=== PATIENT | female | born 2000 | race Caucasian/White ===

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

== ENCOUNTER 2019-01-16 00:27 | Outpatient (CLI) | payer MEDICAID, SELFPAY ==
--- NOTE | 2019-01-16 07:51 | DI.US_ITS ---
SYMPTOM/DIAGNOSIS: ABNL UTERINE, VAGINAL BLEEDING, N93.9 PELVIC ULTRASOUND: A transabdominal and transvaginal examination was carried out. The uterus measures 6.8 cm. in length, 3.5 cm. in height and 4.4 cm. in width with an endometrial stripe thickness of 6.7 mm. The right ovary measures 2.6 by 1.7 by 1.9 cm. The left ovary measures 2.6 by 1.2 by 1.0 cm. SUMMARY: Normal pelvic ultrasound.
== END 2019-01-16 00:47 ==
PROVIDERS: PCP Specialist/Technologist Athletic Trainer; Visit Provider Nurse Practitioner Women's Health
DX: N93.9 Abnormal uterine and vaginal bleeding, unspecified (principal)
CPT/HCPCS: 76830; 76856

== ENCOUNTER 2019-07-04 12:35 | Emergency (ER) | payer MEDICAID, SELFPAY ==
[2019-07-04 12:39] VITALS: BP 116/71; PULSE 76; RESP 17; TEMP 36.6; O2SAT 97
--- NOTE | 2019-07-04 12:56 | W.ED.GENAD ---
Discharge Plan Disposition Patient Disposition: HOME Condition: Good Discharge Details Chief Complaint: EarProblem Clinical Impression: Acute otitis media Primary Care Provider: Amadou Buitrago ED Provider: Erika Godinez Home Meds and New Rx's Prescriptions: New amoxicillin-pot clavulanate [Augmentin] 875-125 mg tablet 1 tab PO BID Qty: 20 RF: 0 Continued levonorgestrel-ethinyl estrad [[place] 28] 0.15-0.03 mg tablet 1 tab PO DAILY Qty: 84 RF: 6 acetaminophen [Tylenol] 325 MG tablet 325 mg PO PRNRF: 0 ibuprofen [Advil] 200 MG tablet 200 mg PO PRNRF: 0 Discharge Instructions Instructions: Otitis Media (ED) Additional Instructions: Encourage hydration. Tylenol and/or ibuprofen as needed for discomfort. Do not put anything else in your ears. Please take the Augmentin as prescribed. If symptoms improve, please take entire course. Otherwise, please follow-up with primary care next week. If you develop new or worsening symptoms please seek care urgently once again. Referrals: Amadou Buitrago [Primary Care Provider] - Medical Decision Making Patient is a pleasant 18-year-old female presenting today with chief complaint of right ear pain. She reports that she was sick for a few weeks prior to the onset of her ear discomfort. States that largely her other URI symptoms have been resolving although cough has been intermittent. Also endorses a few fevers over the past week but did not objectively measure her temperature. Reports that ear pain began 1 week ago and is progressive and increasing. Reports that hearing on the right side is muffled. Has been trying to clean out the ear with multiple foreign objects. Advised against this. She is currently menstruating. On exam, she is resting comfortably. Vital signs are within normal limits. Right TM is bulging, erythematous with loss of landmarks. No mastoid tenderness. She appears nontoxic. Exam is otherwise without acute abnormality. Plan to place patient on Augmentin for otitis media. Encourage hydration. Advised Tylenol and ibuprofen as needed for discomfort. Was given return precautions. All questions and concerns were addressed she is agreement this plan. I advised that she follow-up with primary care in 1 week for reevaluation. HPI General Mode of arrival: ambulatory. Date/Time Provider Initiated Documentation: 07/04/19 12:36. Limitations to Documentation: no limitations. Information obtained by: patient and RN notes reviewed. History of Present Illness 18 year old F presents to the emergency department with the chief complaint of right ear pain, described as mild, with intensity rated at 2. Quality is described as aching, Patient reports no radiation. Patient started experiencing this week(s) (1, pain progressively worsening) and it has been constant. No relieving factors improve symptom(s), No exacerbating factors reported . Patient notes cough and fever/chills; denies diaphoresis, headaches, loss of appetite, nausea/vomiting, rash and shortness of breath. Patient did receive the following treatments prior to arrival, none Related Data Home Medications Medication Instructions Recorded Confirmed acetaminophen [Tylenol] 325 mg PO PRN 01/26/13 01/11/19 ibuprofen [Advil] 200 mg PO PRN 01/26/13 01/11/19 levonorgestrel 0.15 mg-ethinyl 1 tab PO DAILY #84 tab 01/11/19 07/04/19 estradiol 0.03 mg tablet amoxicillin-pot clavulanate 1 tab PO BID #20 tab 07/04/19 [Augmentin] Previous Rx's Medication Instructions Recorded levonorgestrel 0.15 mg-ethinyl 1 tab PO DAILY #84 tab 01/11/19 estradiol 0.03 mg tablet amoxicillin-pot clavulanate 1 tab PO BID #20 tab 07/04/19 [Augmentin] Allergies Allergy/AdvReac Type Severity Reaction Status Date / Time No Known Allergies Allergy Unverified 07/04/19 12:43 General Stated Complaint: EarProblem JIGNESH: 4 Review of Systems Constitutional Constitutional: Reports as per HPI and Denies headache(s) Eyes Eyes: Reports as per HPI, Denies eye discharge and Denies irritation ENT Ears, Nose, Mouth, and Throat: Reports as per HPI and Denies headache(s) Cardiovascular Cardiovascular: Reports as per HPI, Denies chest pain and Denies dyspnea Respiratory Respiratory: Reports as per HPI and Denies dyspnea Gastrointestinal Gastrointestinal: Reports as per HPI, Denies abdominal pain, Denies change in bowel habits, Denies nausea and Denies vomiting Integumentary/Breasts Skin/Breast: Reports as per HPI and Denies rash Neurologic Neurologic: Reports as per HPI and Denies headache(s) [facility] Medical History Abnormal uterine bleeding (AUB) (Acute) Surgical History H/O lymph node biopsy (Acute) L anterior jugular, benign results Social History Smoking/Tobacco Use Status: Never Alcohol Intake: current Alcohol Intake frequency: a few times a week Drug use: Never Substance use type: does not use current occupation: student Sexually active: Yes What type of physical activity do you participate in: none Do you feel safe at home: Yes Do you feel safe in your relationship?: Yes Female Reproductive History Menstrual Duration of menses: other (irregular) control method: pills History History 0 Para Hx # Term Pregnancies Multiple births Hx # Pregnancies Ectopic pregnancies AB induced Hx Number of Living Children AB spontaneous Exam Const General: cooperative, healthy appearing, comfortable, no acute distress, well developed and well groomed Nutritional Appearance: average body habitus and well nourished Orientation: alert and awake HENWY Head: normal to inspection, normocephalic and atraumatic Ears: hearing grossly normal bilaterally, external ears normal, right TM abnormal (bulging, erythematous, loss of landmarks), TM normal on the left, mastoids normal and no periauricular adenopathy General nose exam: external nose normal and nares normal Face and sinus: normal facial exam, sinuses nontender and face symmetric Mouth: oral mucosae normal, lip normal, tongue normal, oropharynx normal and moist mucous membranes Teeth and gingiva: dentition normal Throat: posterior oropharynx normal, tonsils normal and uvula midline Eyes General: appearance normal, both eyes and all related structures Neck Neck: normal visual inspection, full ROM, no lymphadenopathy and no meningeal signs Resp Effort & Inspection: normal respiratory effort, able to speak in complete sentences and no respiratory distress Auscultation: clear to auscultation bilaterally, no rales, no rhonchi and no wheezes Cardio Rate: regular rate Rhythm: regular rhythm Heart Sounds: S1 normal and S2 normal Skin General skin exam: no rashes or lesions noted Neuro General: alert and awake Cognition: normal cognition Speech: speech normal Gait: normal gait Psych Appearance: grossly normal and well kempt Mental Status: mental status grossly normal Speech and Movement: speech and movement normal Course Vital Signs Vital signs: Vital Signs Temperature 36.6 C 07/04/19 12:39 Pulse 76 07/04/19 12:39 Respiratory Rate 17 07/04/19 12:39 Blood Pressure 116/71 07/04/19 12:39 Pulse Oximetry 97 07/04/19 12:39 Temperature 36.6 C 07/04/19 12:39 Temperature Source Skin 07/04/19 12:39 Pulse 76 07/04/19 12:39 Respiratory Rate 17 07/04/19 12:39 Respiratory Effort Non-Labored 07/04/19 12:42 Blood Pressure 116/71 07/04/19 12:39 Blood Pressure Position Sitting 07/04/19 12:39 Pulse Oximetry 97 07/04/19 12:39 Oxygen Delivery Method Room Air 07/04/19 12:39 Oxygen Flow Rate 0 07/04/19 12:39 Pain Level 2 07/04/19 12:39
[2019-07-04 13:13] VITALS: BP 116/71; PULSE 76; RESP 17; TEMP 36.6; O2SAT 97
== END 2019-07-04 13:14 | disposition home or self-care (01) ==
PROVIDERS: Emergency Provider Physician Assistant; PCP Specialist/Technologist Athletic Trainer
DX: H66.91 Otitis media, unspecified, right ear (principal)
CPT/HCPCS: 99283

== ENCOUNTER 2020-02-06 13:30 | Outpatient (REF) | payer MEDICAID, SELFPAY ==
[2020-02-07 14:11] LABS: Chlamydia Result Negative (Negative); GC Result Negative (Negative)
== END 2020-02-06 13:50 ==
LOC: LBN 13:30
PROVIDERS: PCP Specialist/Technologist Athletic Trainer; Visit Provider Nurse Practitioner Family
DX: Z11.3 Encounter for screening for infections with a predominantly sexual mode of transmission (principal)
CPT/HCPCS: 87491; 87591

== ENCOUNTER 2021-05-24 12:37 | Outpatient (REF) | payer MEDICAID, SELFPAY ==
--- NOTE | 2021-05-24 11:30 | PAPFT_PTH ---
PATIENT: Dylon Guevara LOC: [facility] U#:[id number] AGE/SX: 20/F ROOM: RE05/24/[address]: Delmy Rios NP : 2000 BED: DIS: 05/24/2021 SPEC #: [id number] RECD: 05/24/21 18:04 STATUS: HUGH REPranay #: [id number] KIM: 05/24/21 11:[address]: Gabriel GONZALES,Delmy [facility] RECD BY: Miya Hook ENTERED: 05/24/21 18:08 SP TYPE: PAPFT OTHR DR: Amadou Buitrago Tissues: 1 - CX/ENDOCX FOR PAP SMEARS Procedures: PAP THIN PREP/UVM Screening Comments: [id number] (CHLAMYDIA/GC)
[2021-05-25 16:22] LABS: Chlamydia Result Negative (Negative); GC Result Negative (Negative)
== END 2021-05-24 12:38 | disposition home or self-care (01) ==
LOC: LBN 12:37
PROVIDERS: PCP Specialist/Technologist Athletic Trainer; Visit Provider Nurse Practitioner Women's Health
DX: Z12.4 Encounter for screening for malignant neoplasm of cervix (principal); Z11.3 Encounter for screening for infections with a predominantly sexual mode of transmission
CPT/HCPCS: 87491; 87591; 88142

== ENCOUNTER 2021-06-28 03:00 | Outpatient (CLI) | payer MEDICAID, SELFPAY ==
--- NOTE | 2021-06-28 08:15 | DI.US_ITS ---
Exam(s) US PELVIS TRANSVAGINAL EXAM: US PELVIS TRANSVAGINAL CLINICAL HISTORY: Dyspareunia, IUD in place,Z30.431 TECHNIQUE: Ultrasound of the pelvis was performed both transabdominal and transvaginal. COMPARISON: US US PELVIS TRANSVAGINAL from 01/16/2019 FINDINGS: UTERUS: Measures 0.4 cm length x 2 point cm AP x 3.5 cm wide. There are no uterine fibroids. Endometrial thickness measures 5 mm. There is an IUD in the endometrial canal but the IUD appears to be line somewhat low in the endometri al. CERVIX: There are no obvious nabothian cysts. RIGHT OVARY: Measures 0.5 x 2.3 x 2.3 cm No significant cysts nor masses evident in the right ovary. LEFT OVARY: Measures 0.6 x 1.9 x 2.3 cm Normal appearing follicles. CUL-DE-SAC: Tiny amount of free fluid. IMPRESSION: 1. Both ovaries appear unremarkable with normal appearing follicles bilaterally. 2. There is an IUD in the uterine cavity. This, however, appears to be somewhat low lying within nez perce rine cavity. 3. Tiny amount of fluid in the cul-de-sac DATA REPOSITORY:
== END 2021-06-28 03:20 ==
PROVIDERS: PCP Specialist/Technologist Athletic Trainer; Visit Provider Nurse Practitioner Women's Health
DX: Z30.431 Encounter for routine checking of intrauterine contraceptive device (principal)
CPT/HCPCS: 76830; 76856

== ENCOUNTER 2021-12-15 02:10 | Outpatient (CLI) | payer MEDICAID, SELFPAY ==
[2021-12-15 07:28] LABS: FREE T4 0.78 ng/dL (0.76-1.46); TSH (W/Ref FT4) 4.11 uIU/mL (0.36-3.74)
== END 2021-12-15 02:11 | disposition home or self-care (01) ==
LOC: LBO 02:10
PROVIDERS: PCP Nurse Practitioner Family; Visit Provider Obstetrics & Gynecology
DX: N92.0 Excessive and frequent menstruation with regular cycle (principal); N93.9 Abnormal uterine and vaginal bleeding, unspecified
CPT/HCPCS: 36415; 84439; 84443

== ENCOUNTER 2022-05-25 17:45 | Emergency (ER) | payer MEDICAID, SELFPAY ==
[2022-05-25 17:49] VITALS: BP 146/92; PULSE 82; RESP 18; TEMP 36.6; O2SAT 98
--- NOTE | 2022-05-25 19:49 | W.ED.GENAD ---
Discharge Plan Disposition Patient Disposition: Home Condition: Stable Discharge Details Clinical Impression: URI (upper respiratory infection) Primary Care Provider: Kiki Nation ED Provider: Tyler Martinez Home Meds and New Rx's Prescriptions: New benzonatate 200 mg capsule 200 mg PO TID PRN (Reason: cough) Qty: 30 0RF Continued acetaminophen [Tylenol] 325 MG tablet 325 - 650 mg PO PRN PRN ibuprofen [Advil] 200 MG tablet 200 mg PO PRN Discharge Instructions Instructions: Upper Respiratory Infection (ED) Additional Instructions: Please use the provided inhaler as discussed. You may also use [id number] cough and cold medication. During viral illness it is very important that you stay well-hydrated and get plenty of rest. If you develop any new or significant worsening of symptoms or do not show signs of improvement by next week please follow-up with your primary care provider for reassessment or return to the emergency department as needed. Referrals: Kiki Nation [Primary Care Provider] - 1 week (If not improving by next week please follow-up your primary care provider for reassessment) Discharge Data Discharge Date/Time-TO BE ENTERED AT DEPARTURE: 05/25/22 20:06 Medical Decision Making 2 days of URI, family members with RSV pneumonia, exam is unremarkable, slightly tight lower lung sounds but no concern for pneumonia at this time. I feel that this is more viral etiology. Will give patient an inhaler and Tessalon Perles along with return and follow-up precautions. After discussion of diagnosis and plan of care patient has no further needs, questions, or concerns and states clear understanding to return to the emergency department for any worsening symptoms. This documentation was generated using [employer] Experience[employer] system, please disregard any oddities of phrase or misspellings. Sign Out No HPI General Mode of arrival: ambulatory. Date/Time Provider Initiated Documentation: 05/25/22 18:22. Limitations to Documentation: no limitations. Information obtained by: patient. History of Present Illness 21 year old F presents to the emergency department with the chief complaint of cold symptoms, described as moderate, with intensity rated at 6. Quality is described as aching, Patient started experiencing this day(s) (2) and it has been constant. No relieving factors improve symptom(s), No exacerbating factors reported . Patient notes fever/chills, headaches and malaise. Patient did receive the following treatments prior to arrival, none Related Data Home Medications Medication Instructions Recorded Confirmed acetaminophen 325 mg tablet 325 - 650 mg PO PRN PRN 01/26/13 05/25/22 (Tylenol) ibuprofen 200 mg tablet (Advil) 200 mg PO PRN 01/26/13 03/14/22 benzonatate 200 mg capsule 200 mg PO TID PRN cough #30 caps 05/25/22 Previous Rx's Medication Instructions Recorded benzonatate 200 mg capsule 200 mg PO TID PRN cough #30 caps 05/25/22 Allergies Allergy/AdvReac Type Severity Reaction Status Date / Time No Known Allergies Allergy Verified 05/25/22 17:55 General Stated Complaint: RespSymp JIGNESH: 4 Review of Systems Constitutional Constitutional: Reports body ache(s), Reports chills, Reports fever(s), Reports headache(s), Reports lethargy and Reports malaise Eyes Eyes: Denies eye discharge ENT Ears, Nose, Mouth, and Throat: Reports as per HPI, Denies ear discharge, Denies otalgia, Reports headache(s), Reports nasal congestion, Reports nasal discharge, Denies neck pain, Reports sore throat and Denies throat swelling Cardiovascular Cardiovascular: Denies chest pain and Denies dyspnea Respiratory Respiratory: Reports cough and Denies dyspnea Musculoskeletal Musculoskeletal: Denies joint swelling and Denies neck pain Integumentary/Breasts Skin/Breast: Denies rash Neurologic Neurologic: Reports headache(s) Allergic/Immunologic Allergic/Immunologic: Denies throat swelling PFSH All Active Problems (Updated 05/25/22 @ 19:50 by Tyler Martinez NP) URI (upper respiratory infection) (Acute) Oligomenorrhea (Acute) Obesity (Chronic) Unable to lose weight (Acute) Dyspareunia (Acute) seeing pelvic PT Breast skin changes (Acute) Left lower quadrant pain (Acute) Medical History (Updated 05/25/22 @ 19:50 by Tyler Martinez NP) Abnormal uterine bleeding (AUB) Procreative management Surgical History H/O lymph node biopsy L anterior jugular, benign results Family History Maternal Grandfather Diabetes Heart disease Paternal Aunt Thyroid cancer Social History Smoking/Tobacco Use Status: Current every day Tobacco Type: e-cigarettes Smoking risk assessment performed?: Yes Alcohol Intake: current Alcohol Intake frequency: a few times a week Drug use: Never Substance use type: does not use current occupation: student Sexually active: Yes What type of physical activity do you participate in: none Do you feel safe at home: Yes Do you feel safe in your relationship?: Yes Female Reproductive History Menstrual Duration of menses: other control method: none History History 0 Para Hx # Term Pregnancies Multiple births Hx # Pregnancies Ectopic pregnancies AB induced Hx Number of Living Children AB spontaneous Exam Const General: cooperative, comfortable and no acute distress Orientation: alert and awake HENMT Head: normal to inspection, normocephalic and atraumatic Ears: hearing grossly normal bilaterally and TM's normal bilaterally General nose exam: external nose normal Face and sinus: no erythema Mouth: oral mucosae normal, no drooling, no muffled voice and no trismus Throat: posterior oropharynx normal Neck Neck: normal visual inspection, full ROM, no lymphadenopathy, no meningeal signs, trachea midline and supple Resp Effort & Inspection: normal respiratory effort, able to speak in complete sentences and cough Quality of cough: dry Auscultation: clear to auscultation bilaterally Cardio Rate: regular rate Rhythm: regular rhythm Heart Sounds: S1 normal, S2 normal, normal S1 and S2, no click, no gallops, no murmurs and no rubs Skin General skin exam: no rashes or lesions noted and dry skin (warm) Neuro General: patient alert, patient awake, patient oriented x3, gait normal and moves all extremities Cognition: normal cognition Speech: speech normal Course Vital Signs Vital signs: Vital Signs Temperature 36.6 C 05/25/22 17:49 Pulse 82 05/25/22 17:49 Respiratory Rate 18 05/25/22 17:49 Blood Pressure 146/92 H 05/25/22 17:49 Pulse Oximetry 98 05/25/22 17:49 Temperature 36.6 C 05/25/22 17:49 Temperature Source Oral 05/25/22 17:49 Pulse 82 05/25/22 17:49 Respiratory Rate 18 05/25/22 17:49 Blood Pressure 146/92 H 05/25/22 17:49 Blood Pressure Position Sitting 05/25/22 17:49 Pulse Oximetry 98 05/25/22 17:49 Oxygen Delivery Method Room Air 05/25/22 17:49 Oxygen Flow Rate 0 05/25/22 17:49 Pain Level 2 05/25/22 17:49 Comment 05/25/22 17:49 PAWSS Have you Been Recently Intoxicated or Drunk Within the Last 30 days?: No Have you Ever Experienced Previous Episodes of Alcohol Withdrawal?: No Have you ever Experienced Withdrawal Seizures?: No Have you ever Experienced Delirium Tremens(DT)s?: No Have you ever undergone Alcohol Rehabilitation Treatment (i.e, inpt ot outpatient treatment programs)?: No Have you ever Experienced Blackouts?: No Have you ever Combined Alcohol with other Downers within the last 90 days?: No Have you ever Combined Alcohol with any other Substance of Abuse during the last 90 days?: No Positive Blood Alcohol level on Presentation? [PCS.BAL]: No Evidence of Increased Autonomic Activity (i.e. HR>120, tremor, sweating, agitation, nausea)?: No Result: 0
[2022-05-25] MEDS: Albuterol HFA 8 GM 60 PUFF INH IH (20:03)
[2022-05-25] MEDS: Inhaler, Assist Device 1 EACH MC (20:03)
[2022-05-25] MEDS: Benzonatate 100 MG CAP 300 MG PO (20:03)
== END 2022-05-25 20:06 | disposition home or self-care (01) ==
PROVIDERS: Emergency Provider Nurse Practitioner Family; PCP Nurse Practitioner Family
DX: J06.9 Acute upper respiratory infection, unspecified (principal)
CPT/HCPCS: 99283

== ENCOUNTER 2022-07-25 03:10 | Outpatient (CLI) | payer MEDICAID, SELFPAY ==
--- NOTE | 2022-07-25 13:00 | NS.NUTBLAN_ITS ---
Dylon was referred for weight management. 5'2 228 lbs BMI: 41 Dylon reports she typically weighs about 160 lbs. 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 She gradually gained weight, was dx with PCOS and had very irregular and heavy periods. She had a trial of metformin but could not tolerate. Had a trial of control but could not tolerate. Has tried to lose weight but unable to do so despite cutting out processed foods and being active. 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 She desires . Recent blood work indicates elevated TSH, low level of testosterone Diet Recall: B: scrambled eggs, L: salad or cottage cheese, D: homemade . Sleeps 8-10 hour per night Session today focused on weight loss diet and options. In view of following a well balanced diet with no excess in simple carbs, its unclear if she will lose weight on lower carb diet. Encouraged daily exercise of 45 min or 10,000 steps. PCOS most likely causing insulin resistance, making weight loss difficult. May benefit from ozempic/trucility to aid in weight loss as with PCOS. If diet/exercise do not provide success, recommend Dylon look into weight loss surgery. Follow up planned for 08/30/22 at 3 pm.
== END 2022-07-25 03:11 | disposition home or self-care (01) ==
LOC: DS 03:10
PROVIDERS: PCP Nurse Practitioner Family; Visit Provider Dietitian, Registered
DX: E66.8 Other obesity (principal); Z68.41 Body mass index [BMI] 40.0-44.9, adult; Z71.3 Dietary counseling and surveillance; E28.2 Polycystic ovarian syndrome
CPT/HCPCS: 97802

== ENCOUNTER 2022-08-29 12:12 | Outpatient (CLI) | payer MEDICAID, SELFPAY ==
--- NOTE | 2022-08-29 14:00 | NS.NUTBLAN_ITS ---
Dylon returns for weight management education. 5'2 228 lbs BMI: 41 No change in weight in last 4 weeks despite reaching 34757 steps 5 days a week and following a lower carb diet (<100g carbs) and meeting 100% protein needs. Dylon is frustrated at the lack of weight loss and is interested in pursuing weight loss surgery. She will attend a [facility] Info meeting on 09/02/22. Session today focused on importance of continuation of exercise and well balanced meals. Provided support for weight loss surgery and discussed typical diets pre and post surgery. Suspect, lack of weight loss due to insulin resistance with PCOS. Unable to tolerate metformin. Weight loss surgery will most likely correct insulin metabolism and provide Dylon the weight she desires and ability to conceive. Follow up 09/23/22 at 1 pm.
== END 2022-08-29 12:13 | disposition home or self-care (01) ==
LOC: DS 12:12
PROVIDERS: PCP Nurse Practitioner Family; Visit Provider Dietitian, Registered
DX: E66.8 Other obesity (principal); Z68.41 Body mass index [BMI] 40.0-44.9, adult; Z71.3 Dietary counseling and surveillance
CPT/HCPCS: 97803

== ENCOUNTER 2022-09-23 03:02 | Outpatient (CLI) | payer MEDICAID, SELFPAY ==
--- NOTE | 2022-09-23 13:00 | NS.NUTBLAN_ITS ---
Dylon returns for weight management education. 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 She is interested in pursueing weight loss surgery as she has tried many times with no success to lose weight with diet and exercise. [facility] is in agreement. Session today focused on providing Dylon support for following healthful diet and staying active. No follow up planned at this time but will be available going forward.
== END 2022-09-23 03:03 | disposition home or self-care (01) ==
PROVIDERS: PCP Nurse Practitioner Family; Visit Provider Dietitian, Registered
DX: E66.8 Other obesity (principal); Z68.41 Body mass index [BMI] 40.0-44.9, adult; Z71.3 Dietary counseling and surveillance
CPT/HCPCS: 97803

== ENCOUNTER 2022-09-26 17:17 | Outpatient (REF) | payer MEDICAID, SELFPAY ==
[2022-09-26 19:22] LABS: TSH 2.22 uIU/mL (0.36-3.74)
== END 2022-09-26 17:18 | disposition home or self-care (01) ==
LOC: NCHCN 17:17
PROVIDERS: PCP Nurse Practitioner Family; Visit Provider Nurse Practitioner Family
DX: R94.6 Abnormal results of thyroid function studies (principal)
CPT/HCPCS: 84443

== ENCOUNTER 2024-05-03 12:01 | Outpatient (REF) | payer OTHER, SELFPAY ==
[2024-05-03 16:59] LABS: FREE T4 0.98 ng/dL (0.76-1.46); TSH 1.65 uIU/mL (0.36-3.74)
== END 2024-05-03 12:02 | disposition home or self-care (01) ==
LOC: NCHCN 12:01
PROVIDERS: PCP Nurse Practitioner Family; Visit Provider Nurse Practitioner Family
DX: R94.6 Abnormal results of thyroid function studies (principal)
CPT/HCPCS: 84439; 84443

== ENCOUNTER 2024-07-05 16:50 | Outpatient (REF) | payer OTHER, SELFPAY ==
[2024-07-05 19:26] LABS: TSH (W/Ref FT4) 1.71 uIU/mL (0.36-3.74)
== END 2024-07-05 16:51 | disposition home or self-care (01) ==
LOC: NCHCN 16:50
PROVIDERS: PCP Nurse Practitioner Family; Visit Provider Nurse Practitioner Family
DX: R94.6 Abnormal results of thyroid function studies (principal)
CPT/HCPCS: 84443

== ENCOUNTER 2024-10-11 00:53 | Outpatient (CLI) | payer OTHER, SELFPAY ==
[2024-10-11 15:23] LABS: Panorama Kit Sent via Fed Ex
[2024-10-11 15:29] LABS: Abs Immature Grans 0.03 10^3/uL (0.0-0.06); Absolute Basophil Count 0.06 10^3/uL (0.0-0.2); Absolute Eosinophil Count 0.08 10^3/uL (0.0-0.7); Absolute Lymphocyte Count 3.16 10^3/uL (1.2-3.4); Absolute Monocyte Count 0.55 10^3/uL (0.1-0.8); Absolute Neutrophil Count 6.69 10^3/uL (1.2-6.7); Basophils % 0.6 %; Eosinophils % 0.8 %; HCT 35.5 % (36.0-46.0); HGB 11.6 g/dL (11.2-15.7); Immature Grans % 0.3 %; Lymphocytes % 29.9 %; MCH 27.5 pg (27.0-33.0); MCHC 32.7 % (32.0-36.0); MCV 84 fL (80-95); MPV 8.9 fL (8.0-11.0); Monocytes % 5.2 %; Neutrophils % 63.2 %; Platelet Count 312 10^3/uL (130-400); RBC 4.22 10^6/uL (3.93-5.22); RDW 12.5 % (11.7-14.6); RDW-SD 37.8 fL; WBC 10.57 10^3/uL (4.4-10.8)
[2024-10-11 15:48] LABS: Hemoglobin A1C 5.2 % (<5.7)
[2024-10-11 16:22] LABS: Iron 69 ug/dL (50-170); Total Iron Binding Capacity 276 ug/dL (250-450); Transferrin Sat 25 % (15-50)
[2024-10-11 16:52] LABS: Ferritin 89 ng/mL (8-252); Folate 17.7 ng/mL (8.6-20.0); TSH (W/Ref FT4) 1.47 uIU/mL (0.36-3.74); Vitamin B12 1131 pg/mL (193-986)
[2024-10-12 11:43] LABS: HIV-1/2 Ag & Ab Screen Negative (Negative)
[2024-10-14 09:17] LABS: Hepatitis C Ab w Rflx HCV PCR Negative (Negative)
[2024-10-14 10:06] LABS: Hepatitis B Surface Ag Negative (Negative)
[2024-10-14 11:38] LABS: Varicella IgG Antibody Negative (See Note)
[2024-10-14 12:18] LABS: Rubella IgG Ab (UVM) Negative (See Note)
[2024-10-14 16:50] LABS: Syphilis IgG w/Reflex Nonreactive (Nonreactive)
[2024-10-18 15:09] LABS: 1,25-Dihydroxyvitamin D 75 pg/mL (18-78)
== END 2024-10-11 00:54 | disposition home or self-care (01) ==
LOC: LBO 00:53
PROVIDERS: Advanced Practice Midwife; PCP Nurse Practitioner Family; Visit Provider Advanced Practice Midwife
DX: Z12.4 Encounter for screening for malignant neoplasm of cervix; Z34.91 Encounter for supervision of normal pregnancy, unspecified, first trimester
CPT/HCPCS: 36415; 86787; 86803; 86850; 86900; 86901; 87340; 87389; 82310; 82607; 82652; 82728; 82746; 83036; 83540; 83550; 84443; 85025; 86762; 86780

== ENCOUNTER 2024-10-11 14:52 | Outpatient (REF) | payer OTHER, SELFPAY ==
--- NOTE | 2024-10-11 14:00 | PAPFT_PTH ---
PATIENT: Dylon Guevara LOC: [facility] U#:[id number] AGE/SX: 23/F ROOM: RE10/11/[address]: Darcie Tobin CNM : 2000 BED: DIS: 10/11/2024 SPEC #: [id number] RECD: 10/11/24 17:42 STATUS: HUGH REQ #: [id number] KIM: 10/11/24 14:[address]: Darcie Tobin DEPT: [facility] Cytology RECD BY: Miya Hook ENTERED: 10/11/24 17:43 SP TYPE: PAPFT OTHR DR: Kiki Nation Tissues: 1 - CX/ENDOCX FOR PAP SMEARS Procedures: PAP THIN PREP/UVM Screening Comments: [id number] (CHLAMYDIA/GC)
[2024-10-14 12:44] LABS: Chlamydia Result Negative (Negative); GC Result Negative (Negative)
== END 2024-10-11 14:53 | disposition home or self-care (01) ==
LOC: LBN 14:52
PROVIDERS: PCP Nurse Practitioner Family; Visit Provider Advanced Practice Midwife
DX: Z34.91 Encounter for supervision of normal pregnancy, unspecified, first trimester (principal); Z12.4 Encounter for screening for malignant neoplasm of cervix; Z00.00 Encounter for general adult medical examination without abnormal findings
CPT/HCPCS: 87491; 87591; 88142; 87086

== ENCOUNTER 2024-11-18 10:13 | Outpatient (CLI) | payer OTHER, SELFPAY ==
[2024-11-20 15:06] LABS: Cigarette smoking status non-Smoker; GA used in risk estimate Scan estimate; IVF Pregnancy No; Initial or repeat testing Initial testing; Insulin dependent diabetes No; Maternal Weight 139 lbs; Number of Fetuses 1; Physician Phone Number 802-748-7300; Prev Pregnancy w/NTD No; RECOMMENDED FOLLOW UP None.; Results Summary Normal risk
== END 2024-11-18 10:14 | disposition home or self-care (01) ==
LOC: LBO 10:14
PROVIDERS: PCP Nurse Practitioner Family; Visit Provider Advanced Practice Midwife
DX: Z34.91 Encounter for supervision of normal pregnancy, unspecified, first trimester (principal)
CPT/HCPCS: 36415; 82105

== ENCOUNTER 2025-02-07 00:12 | Outpatient (CLI) | payer OTHER, SELFPAY ==
--- NOTE | 2025-02-07 08:00 | DI.US_ITS ---
Exam(s) US OB CHAVO WEIGHT EXAM: US OB CHAVO WEIGHT CLINICAL HISTORY: check placenta position,z34.90. TECHNIQUE: Transabdominal obstetrical ultrasound was performed. COMPARISON: US US OB 2-3 TRIMESTER from 12/09/2024 FINDINGS: There is a single viable intrauterine gestation with cardiac activity identified-143 bpm The fetus is presently in cephalic position . Amniotic fluid: There is a normal amount of amniotic fluid with an CHAVO of 10.60cm. Placental location: The placenta is posterior grade 2. The placenta is again noted be low lying with the distance between the tip of the posterior placenta and the internal cervical os being 1.8 cm, similar to the prior study of 12/09/[address]. [address] this at approximately 27 weeks and 2 days gestational age, implying KATIA of 05/07/2025. BPD measures 27 weeks and 3 days HC measures 27 weeks and 1 day AC measures 27 weeks and 2 days FL measures 27 weeks and 0 days Estimated weight is 1035 gm-2 pounds, 5 ounces Fetus is at the 8th percentile on the Hadlock scale. UMBILICAL ARTERY DOPPLER STUDY: Performed at the proximal /mid/and distal placental aspects of the umbilical cord Please refer to computer-generated sheet. All umbilical Doppler indices are below the 95th percentile for the age and therefore considered within normal limits. IMPRESSION:: Viable intrauterine gestation, as described above. Fetus is at only the 8th percentile on the Hadlock scale. Umbilical artery Doppler study reveals all umbilical artery Doppler indices below the 95th percentile and therefore considered normal. The posterior placenta is again noted to be somewhat low lying as described above, unchanged from the prior study of 12/09/2024. DATA REPOSITORY:
== END 2025-02-07 00:32 ==
LOC: DI 00:12
PROVIDERS: PCP Nurse Practitioner Family; Visit Provider Advanced Practice Midwife
DX: Z34.93 Encounter for supervision of normal pregnancy, unspecified, third trimester (principal); Z3A.27 27 weeks gestation of pregnancy
CPT/HCPCS: 76816

== ENCOUNTER 2025-02-21 00:31 | Outpatient (CLI) | payer OTHER, SELFPAY ==
[2025-02-21 14:24] LABS: HCT 31.3 % (36.0-46.0); HGB 10.2 g/dL (11.2-15.7); MCH 27.1 pg (27.0-33.0); MCHC 32.6 % (32.0-36.0); MCV 83 fL (80-95); MPV 8.8 fL (8.0-11.0); Platelet Count 338 10^3/uL (130-400); RBC 3.76 10^6/uL (3.93-5.22); RDW 12.4 % (11.7-14.6); RDW-SD 37.5 fL; WBC 11.45 10^3/uL (4.4-10.8)
[2025-02-21 15:24] LABS: TSH (W/Ref FT4) 1.55 uIU/mL (0.36-3.74); Vitamin B12 603 pg/mL (193-986)
== END 2025-02-21 00:32 | disposition home or self-care (01) ==
LOC: LBO 00:31
PROVIDERS: PCP Nurse Practitioner Family; Visit Provider Advanced Practice Midwife
DX: Z34.93 Encounter for supervision of normal pregnancy, unspecified, third trimester (principal); R79.89 Other specified abnormal findings of blood chemistry; Z98.84 Bariatric surgery status; Z3A.38 38 weeks gestation of pregnancy
CPT/HCPCS: 36415; 85027; 82607; 84443

== ENCOUNTER 2025-03-07 15:48 | Outpatient (CLI) | payer OTHER, SELFPAY ==
[2025-03-07 16:01] LABS: Ferritin 7 ng/mL (8-252)
== END 2025-03-07 15:49 | disposition home or self-care (01) ==
LOC: LBO 15:48
PROVIDERS: PCP Nurse Practitioner Family; Visit Provider Advanced Practice Midwife
DX: O99.013 Anemia complicating pregnancy, third trimester (principal)
CPT/HCPCS: 36415; 82728

== ENCOUNTER 2025-03-12 03:59 | Outpatient (CLI) | payer OTHER, SELFPAY ==
--- NOTE | 2025-03-12 06:39 | DI.US_ITS ---
Exam(s) US OB CHAVO WEIGHT EXAM: US OB CHAVO WEIGHT CLINICAL HISTORY: history gastric bypass, HX VALERIE-EN-Y, , Z98.84, Z34.90. TECHNIQUE: Transabdominal obstetrical ultrasound performed. COMPARISON: US US OB 2-3 TRIMESTER from 12/09/2024 US US OB CHAVO WEIGHT from 02/07/2025 FINDINGS:: Number of fetuses: 1 position: CEPHALIC Placental location: POSTERIOR No evidence of previa. BIOMETRIC DATA: BPD: 7.48cm, 30weeks 0 days HC: 27.92cm, 30weeks 4days AC: 27.27cm, 31weeks 2days FL: 5.85cm, 30weeks 4days EFW: 1,663.72g, 3lb 11.22oz, 3.4% Composite Age: 30weeks 4days KATIA: 05/17/2025 Heart Rate: 111 -124 bpm Amniotic fluid index: 14.54cm. Visually, amount of fluid is within normal limits. IMPRESSION: size is within the expected range. The estimated weight corresponds to the 3rd percentile. DATA REPOSITORY:
== END 2025-03-12 04:19 ==
PROVIDERS: PCP Nurse Practitioner Family; Visit Provider Advanced Practice Midwife
DX: Z98.84 Bariatric surgery status (principal); Z34.93 Encounter for supervision of normal pregnancy, unspecified, third trimester; Z3A.30 30 weeks gestation of pregnancy
CPT/HCPCS: 76816

== ENCOUNTER 2025-03-12 15:03 | Outpatient (CLI) | payer OTHER, SELFPAY ==
[2025-03-12 17:19] VITALS: BP 114/66; PULSE 85
[2025-03-12] MEDS: IRON SUCROSE COMPLEX 200 MG in Normal Saline 100 ML 400 MG IVPB (17:28)
[2025-03-12 17:29] VITALS: BP 114/66; PULSE 85; TEMP 36.8
--- NOTE | 2025-03-12 19:24 | W.OBNST ---
Date of service: 03/12/25 Time of Service: 19:24 NST Evaluation Reason for NST Reasons for Nonstress Test: INTRA-UTERINE GROWTH RES Gestational Age Gestational Age in Weeks and Days: 33 Weeks and 0Days Test and Monitor Explained Test/Monitor Explained: Test Explained, Monitor Explained and Patient Verbalized Understanding Vital Signs Blood Pressure: 114/66 Pulse: 85 Temperature: 98.2 F Urine Results Urine Protein: Negative Urine Ketones: Negative Urine Glucose: Negative Urine Blood: Negative NST Information Time on Monitor: 17:15 Date off Monitor: 03/12/25 Time off Monitor: 17:58 NST Interventions: PO Hydration Contraction Frequency: 3 contractions throughout NST w/ some uterine varibility NST Evaluation Patient States Movement: Present FHR Baseline: 125 Variability: Moderate 6-25 bpm Accelerations: 15x15 Decelerations: Variable NST Results: Reactive Note Ultrasound Done: N/A. NST Note Note: 24-year-old at 33+0 here for NST secondary to new diagnosis of growth restriction. Patient has referral to [facility] [place] [facility]. Iron infusion done today (Hgb 10.2). Next NST scheduled for 03/16 and next OB visit with NST and 2nd iron transfusion scheduled for 03/20. NST Reviewed and Verified by: Orin Cotto
[2025-03-12 19:27] VITALS: BP 114/66; PULSE 85; TEMP 36.8
== END 2025-03-12 18:15 ==
LOC: BCD 15:13 → OBS 17:15
PROVIDERS: PCP Nurse Practitioner Family; Visit Provider Advanced Practice Midwife
DX: Z3A.33 33 weeks gestation of pregnancy (principal); O36.5931 Maternal care for other known or suspected poor fetal growth, third trimester, fetus 1
CPT/HCPCS: 96365; 59025; J1756

== ENCOUNTER 2025-03-16 09:05 | Outpatient (CLI) | payer OTHER, SELFPAY ==
[2025-03-16 09:36] VITALS: BP 98/53; PULSE 65; TEMP 36.9
[2025-03-16 10:23] VITALS: BP 98/53; PULSE 65
[2025-03-16 11:17] LABS: HCT 29.9 % (36.0-46.0); HGB 9.8 g/dL (11.2-15.7); MCH 27.1 pg (27.0-33.0); MCHC 32.8 % (32.0-36.0); MCV 83 fL (80-95); MPV 8.9 fL (8.0-11.0); Platelet Count 323 10^3/uL (130-400); RBC 3.61 10^6/uL (3.93-5.22); RDW 12.5 % (11.7-14.6); RDW-SD 37.6 fL; WBC 10.35 10^3/uL (4.4-10.8)
[2025-03-16 11:26] LABS: PROTEIN < 6.0 mg/dL
--- NOTE | 2025-03-16 11:30 | PDOC.NST_ITS ---
Date of service: 03/16/25 Time of Service: 11:30 NST Evaluation Reason for NST Reasons for Nonstress Test: INTRA-UTERINE GROWTH RES Gestational Age Gestational Age in Weeks and Days: 33 Weeks and 4Days Test and Monitor Explained Test/Monitor Explained: Test Explained, Monitor Explained and Patient Verbalized Understanding Vital Signs Blood Pressure: 98/53 Pulse: 65 Temperature: 98.4 F Weight: 152 lb NST Information Date on Monitor: 03/16/25 Time on Monitor: 09: Date off Monitor: 03/16/25 Time off Monitor: 10:40 Total Time on Monitor: 75 NST Interventions: PO Hydration NST Evaluation Patient States Movement: Present FHR Baseline: 125 Variability: Moderate 6-25 bpm Accelerations: 15x15 Decelerations: None NST Results: Reactive Note Ultrasound Done: N/A. NST Note Note: Dylon is here for twice weekly NST for IUGR. Reactive NST. She has appt. with [facility] 03/19 for US. TORCH studies and preeclampsia screen labs drawn today per Dr. Han's recommendation. Follow up with NST in 4 days and [place] [facility] [place] NST Reviewed and Verified by: Janna Fonseca
[2025-03-16 11:32] VITALS: BP 98/53; PULSE 65; TEMP 36.9
[2025-03-16 11:33] LABS: ALT 11 U/L (14-59); AST 12 U/L (15-37); Albumin 2.7 g/dL (3.4-5.0); Alkaline Phosphatase 126 U/L (46-116); Anion Gap 6.1 mmol/L (3-11); BUN 4 mg/dL (7-18); Bilirubin, Total 0.5 mg/dL (0.2-1.0); CO2 26.9 mmol/L (21.0-32.0); Calcium 9.1 mg/dL (8.5-10.1); Chloride 107 mmol/L (98-107); Estimated GFR 127.67 (mL/min/1.73m2); Glucose 69 mg/dL (74-106); Potassium 3.7 mmol/L (3.5-5.1); Sodium 140 mmol/L (136-145); Total Protein 6.1 g/dL (6.4-8.2)
[2025-03-18 16:14] LABS: CMV Ab, IgM Negative (Negative)
[2025-03-19 14:31] LABS: Parvovirus B19 Ab, IgG Negative (Negative); Parvovirus B19 Ab, IgM Negative (Negative)
== END 2025-03-16 11:06 | disposition other institution (70) ==
LOC: BCD 09:05 → OBS 09:32
PROVIDERS: PCP Nurse Practitioner Family; Visit Provider Advanced Practice Midwife
DX: Z3A.33 33 weeks gestation of pregnancy (principal); O36.5931 Maternal care for other known or suspected poor fetal growth, third trimester, fetus 1
CPT/HCPCS: 36415; 80053; 85027; 59025; 82565; 84156; 86644; 86645; 86747; 86777; 86778

== ENCOUNTER 2025-03-20 07:17 | Outpatient (CLI) | payer OTHER, SELFPAY ==
[2025-03-20 10:15] VITALS: BP 105/59; PULSE 72; TEMP 36.7
[2025-03-20 11:04] VITALS: BP 105/59; PULSE 72
[2025-03-20] MEDS: IRON SUCROSE COMPLEX 200 MG in Normal Saline 100 ML 400 MG IVPB (11:31)
--- NOTE | 2025-03-20 13:20 | W.OBNST ---
Date of service: 03/20/25 Time of Service: 11:00 NST Evaluation Reason for NST Reasons for Nonstress Test: INTRA-UTERINE GROWTH RES Gestational Age Gestational Age in Weeks and Days: 34 Weeks and 1Days Test and Monitor Explained Test/Monitor Explained: Test Explained, Monitor Explained and Patient Verbalized Understanding Vital Signs Blood Pressure: 105/59 Pulse: 72 Temperature: 98.1 F Weight: 152 lb 4.8 oz NST Information Date on Monitor: 03/20/25 Time on Monitor: 10:20 Date off Monitor: 03/20/25 Time off Monitor: 11:06 Total Time on Monitor: 46 NST Interventions: PO Hydration NST Evaluation Patient States Movement: Present FHR Baseline: 125 Variability: Moderate 6-25 bpm Accelerations: 15x15 Decelerations: None NST Results: Reactive Note Ultrasound Done: N/A. NST Note Note: iron infusion given 200 mg, for hgb 10.3 Next NST due Monday and will be on Monday/Monday pattern Plan dopplers weekly on Tuesdays, per MFM recommendation Growth scan in 3 wks NST Reviewed and Verified by: Darcie Tobin
[2025-03-20 13:21] VITALS: BP 105/59; PULSE 72; TEMP 36.7
== END 2025-03-20 12:00 | disposition other institution (70) ==
LOC: BCD 07:17 → OBS 10:14
PROVIDERS: PCP Nurse Practitioner Family; Visit Provider Advanced Practice Midwife
DX: Z3A.34 34 weeks gestation of pregnancy (principal); O36.5931 Maternal care for other known or suspected poor fetal growth, third trimester, fetus 1
CPT/HCPCS: 59025; J1756

== ENCOUNTER 2025-03-25 00:36 | Outpatient (CLI) | payer OTHER, SELFPAY ==
--- NOTE | 2025-03-25 15:00 | DI.US_ITS ---
Exam(s) US OB CHAVO UMBILICAL ARTERY EXAM: US OB CHAVO UMBILICAL ARTERY CLINICAL HISTORY: IUGR,WEEKLY STARTING 03/25,o36.5990. COMPARISON: US US OB CHAVO WEIGHT from 03/12/2025 TECHNIQUE: Transabdominal obstetrical ultrasound performed. FINDINGS: Sonographic images demonstrate a single intrauterine gestation. Heart Rate: 138bpm Number of fetuses: 1 position: Cephalic Placental location: Posterior, grade 2. Amniotic fluid index: 9.17cm Amount of fluid is within normal limits. Umbilical artery Doppler measurements: The pulsatility index, resistive index and ST ratio are below the 5th percentile for gestational age. IMPRESSION: Normal CHAVO. Umbilical artery Doppler measurements are below the 5th percentile for gestational age. DATA REPOSITORY:
== END 2025-03-25 00:56 ==
LOC: DI 00:36
PROVIDERS: PCP Nurse Practitioner Family; Visit Provider Advanced Practice Midwife
DX: O36.5931 Maternal care for other known or suspected poor fetal growth, third trimester, fetus 1 (principal); Z3A.34 34 weeks gestation of pregnancy
CPT/HCPCS: 76816; 76820

== ENCOUNTER 2025-03-25 07:32 | Outpatient (CLI) | payer OTHER, SELFPAY ==
[2025-03-25 15:35] VITALS: BP 101/57; PULSE 68
[2025-03-25 15:41] VITALS: BP 101/57; PULSE 68; TEMP 36.8
--- NOTE | 2025-03-25 17:41 | W.OBNST ---
Date of service: 03/25/25 Time of Service: 17:41 NST Evaluation Reason for NST Reasons for Nonstress Test: INTRA-UTERINE GROWTH RES Gestational Age Gestational Age in Weeks and Days: 34 Weeks and 6Days Test and Monitor Explained Test/Monitor Explained: Test Explained, Monitor Explained and Patient Verbalized Understanding Vital Signs Blood Pressure: 101/57 Pulse: 68 Temperature: 98.2 F NST Information Date on Monitor: 03/25/25 Time on Monitor: 15:34 Date off Monitor: 03/25/25 Time off Monitor: 16:22 Total Time on Monitor: 48 NST Interventions: PO Hydration Contraction Frequency: 3 contractions throughout time on monitor NST Evaluation Patient States Movement: Present FHR Baseline: 125 Variability: Moderate 6-25 bpm Accelerations: 15x15 Decelerations: None NST Results: Reactive Note Ultrasound Done: N/A. NST Note Note: Dylon is here for twice weekly NST for FGR. US today and results pending. She received TDAP today and met with Elayne ANDINO to discuss breast pumps and . Weekly Doppler studies ordered. NST Reviewed and Verified by: Janna Fonseca
[2025-03-25 17:43] VITALS: BP 101/57; PULSE 68; TEMP 36.8
[2025-03-26 10:19] VITALS: BP 136/84; PULSE 102
[2025-03-26 10:20] VITALS: PULSE 102; O2SAT 97
== END 2025-03-25 17:25 ==
LOC: BCD 07:35 → OBS 15:25
PROVIDERS: PCP Nurse Practitioner Family; Visit Provider Advanced Practice Midwife
DX: O36.5931 Maternal care for other known or suspected poor fetal growth, third trimester, fetus 1 (principal); Z3A.34 34 weeks gestation of pregnancy
CPT/HCPCS: 59025

== ENCOUNTER 2025-03-28 07:08 | Outpatient (CLI) | payer OTHER, SELFPAY ==
[2025-03-28 07:24] VITALS: BP 98/64; PULSE 78; TEMP 36.7
[2025-03-28 07:27] VITALS: BP 98/64; PULSE 78
[2025-03-28] MEDS: Normal Saline Flush 10 ML SYR IVP (07:53)
[2025-03-28] MEDS: IRON SUCROSE COMPLEX 200 MG in Normal Saline 100 ML 400 MG IVPB (08:31)
--- NOTE | 2025-03-28 09:31 | PDOC.NST_ITS ---
Date of service: 03/28/25 Time of Service: 09: NST Evaluation Reason for NST Reasons for Nonstress Test: INTRA-UTERINE GROWTH RES Gestational Age Gestational Age in Weeks and Days: 35 Weeks and 2Days Test and Monitor Explained Test/Monitor Explained: Test Explained and Monitor Explained Vital Signs Blood Pressure: 98/64 Pulse: 78 Temperature: 98.1 F Weight: 157 lb Urine Results Urine Protein: Positive Urine Ketones: Negative Urine Glucose: Negative Urine Blood: Negative NST Information Date on Monitor: 03/28/25 Time on Monitor: 07:25 Date off Monitor: 03/28/25 Time off Monitor: 08:55 Total Time on Monitor: 90 NST Interventions: PO Hydration NST Evaluation Patient States Movement: Present FHR Baseline: 125 Variability: Moderate 6-25 bpm Accelerations: 15x15 Decelerations: None NST Results: Reactive Note Ultrasound Done: N/A. NST Note Note: Imaging for umbilical cord dopplers and CHAVO done 03/26: S/D=2.5 and CHAVO=9.2 (nml results), NST in today is reactive, 2nd iron infusion given. Pt is scheduled for weekly doppler/CHAVO on 04/01 with NST and GBS collection afte rwards. Then next EFW/CHAVO with doppler scheduled for 04/10 (3 wks from last EFW) and will come to for NST afterwards. NST's are x2/wk. Parvo, CMV and toxo antibodies as well as CMP and urine pr/cr ratio results were WNL/negative last week. Pt accepts recommendation by [facility] [place] [facility] for delivery by IOL at 38-39 weeks, booked for 04/17. We discussed potential for earlier delivery if indicated by surveillance results, reviewed elevated risk for c/s if tracing indicates intolerance of labor. Pt's questions and concerns addressed. MAURILIO CHANGT Reviewed and Verified by: Darcie Tobin
[2025-03-28 09:33] VITALS: BP 98/64; PULSE 78; TEMP 36.7
== END 2025-03-28 09:50 ==
LOC: BCD 07:08 → OBS 07:22
PROVIDERS: PCP Nurse Practitioner Family; Visit Provider Advanced Practice Midwife
DX: Z3A.35 35 weeks gestation of pregnancy (principal); O36.5931 Maternal care for other known or suspected poor fetal growth, third trimester, fetus 1
CPT/HCPCS: 96365; 59025; J1756

== ENCOUNTER 2025-03-30 18:21 | Outpatient (CLI) | payer OTHER, SELFPAY ==
--- NOTE | 2025-03-30 20:42 | W.OBNST ---
Date of service: 03/30/25 Time of Service: 20:42 NST Evaluation Reason for NST Reasons for Nonstress Test: OTHER, SEE COMMENT Reason for NST Other: R/O SROM Gestational Age Gestational Age in Weeks and Days: 35 Weeks and 4Days Test and Monitor Explained Test/Monitor Explained: Test Explained, Monitor Explained and Patient Verbalized Understanding NST Information Date on Monitor: 03/30/25 Time on Monitor: 18:30 Date off Monitor: 03/30/25 Time off Monitor: 19:15 Total Time on Monitor: 45 NST Evaluation Patient States Movement: Present FHR Baseline: 135 Variability: Moderate 6-25 bpm Accelerations: 15x15 Decelerations: None NST Results: Reactive Note Ultrasound Done: N/A. NST Note Note: Dylon had a small gush of fluid at home and presents for rule out ROM. ROM plus neg and speculum exam performed. neg pooling , neg fern. White creamy discharge and clear cervical mucus noted. Cervix appears closed. Frequent mild contractions noted. Signs of labor and SROM reviewed. Follow up with NST 04/01 [facility] NST Reviewed and Verified by: Janna Fonseca
== END 2025-03-30 20:00 ==
LOC: BCD 18:21 → OBS 18:22 → BCD 18:24 → OBS 18:25
PROVIDERS: PCP Nurse Practitioner Family; Visit Provider Advanced Practice Midwife
DX: O47.03 False labor before 37 completed weeks of gestation, third trimester (principal); Z3A.35 35 weeks gestation of pregnancy
CPT/HCPCS: 84112; 59025; 87081; 87480; 87510; 87660

== ENCOUNTER 2025-04-01 02:12 | Outpatient (CLI) | payer OTHER, SELFPAY ==
--- NOTE | 2025-04-01 06:15 | DI.US_ITS ---
Exam(s) US OB CHAVO WEIGHT EXAM: US OB CHAVO WEIGHT CLINICAL HISTORY: interval growth,iugr,O36.5990. TECHNIQUE: Transabdominal obstetrical ultrasound was performed. COMPARISON: US US OB CHAVO UMBILICAL ARTERY from 03/25/2025 FINDINGS: There is a single viable intrauterine gestation with cardiac activity identified-136 bpm The fetus is presently in cephalic position with spine pointing anteriorly. Amniotic fluid: There is a low normal amount of amniotic fluid with an CHAVO of 9.59cm. Placental location: The placenta is posterior grade 2,with no evidence of placenta previa. Dating parameters place this at approximately 32 weeks and 4 days gestational age, implying KATIA of 05/23/2025. BPD measures 32 weeks and 0 days HC measures 32 weeks and 5 days AC measures 32 weeks and 1 day FL measures 33 weeks and 2 days Estimated weight is 1996 gm-4 pounds 6 ounces Fetus is at the less than 3rd percentile on the Hadlock scale. UMBILICAL CORD DOPPLER: gestational age is approximately 35 weeks and 6 days by dates The pulsatility index in the proximal- aspect of the cord 0.86 which is approximately 50th percentile The pulsatility index at the mid aspect of the cord is 0.58 which is approximately 50 percentile The pulsatility index in the distal-placental aspect of the umbilical cord is 0.66 which is slightly over 5th percentile The resistive index in the proximal- aspect of the cord is 0.57 which is slightly over 5th percentile The resistive index at the mid aspect of the cord is 0.45 which is less than 5th percentile The resistive index at the distal-placental aspect of the umbilical cord is 0.49 which is just below 5th percentile The S/D ratio in the proximal- aspect of the cord is 2.3 which is slightly below 50th percentile The S/D ratio at the mid aspect of the cord is 1.8 which is slightly above 5th percentile The S/D ratio at the distal-placental aspect of the umbilical cord is 2.0 which is less than 50th percentile. IMPRESSION:: Viable 3rd trimester gestation, as described above. Fetus is less than 3rd percentile on the Hadlock scale. Umbilical cord Doppler readings as above. All indices are below the 95th percentile. DATA REPOSITORY:
== END 2025-04-01 02:32 ==
LOC: DI 02:12
PROVIDERS: PCP Nurse Practitioner Family; Visit Provider Advanced Practice Midwife
DX: O36.5993 Maternal care for other known or suspected poor fetal growth, unspecified trimester, fetus 3 (principal); Z3A.32 32 weeks gestation of pregnancy
CPT/HCPCS: 76816

== ENCOUNTER 2025-04-01 08:12 | Outpatient (CLI) | payer OTHER, SELFPAY ==
[2025-04-01 09:24] VITALS: BP 111/70; PULSE 86
[2025-04-01 09:31] VITALS: BP 111/70; PULSE 86; TEMP 36.6
[2025-04-01 16:51] VITALS: BP 111/70; PULSE 86; TEMP 36.6
--- NOTE | 2025-04-01 16:51 | W.OBNST ---
Date of service: 04/01/25 Time of Service: 16:51 NST Evaluation Reason for NST Reasons for Nonstress Test: INTRA-UTERINE GROWTH RES Gestational Age Gestational Age in Weeks and Days: 35 Weeks and 6Days Test and Monitor Explained Test/Monitor Explained: Test Explained, Monitor Explained and Patient Verbalized Understanding Vital Signs Blood Pressure: 111/70 Pulse: 86 Temperature: 97.9 F Weight: 154 lb 12.8 oz Urine Results Urine Protein: Negative Urine Ketones: Negative Urine Glucose: Negative Urine Blood: Negative NST Information Date on Monitor: 04/01/25 Time on Monitor: 09:22 Date off Monitor: 04/01/25 Time off Monitor: 09:54 Total Time on Monitor: 32 NST Interventions: Notify Provider Contraction Frequency: 0 NST Evaluation Patient States Movement: Present FHR Baseline: 130 Variability: Moderate 6-25 bpm Accelerations: 15x15 Decelerations: None NST Results: Reactive Note Ultrasound Done: N/A. NST Note Note: Umbilical artery dopplers today: s/d 1.8, CHAVO 9.6 RTO for next NST on Monday NST Reviewed and Verified by: Darcie Tobin
== END 2025-04-01 10:31 ==
LOC: BCD 08:12 → OBS 09:19
PROVIDERS: PCP Nurse Practitioner Family; Visit Provider Advanced Practice Midwife
DX: O36.5931 Maternal care for other known or suspected poor fetal growth, third trimester, fetus 1 (principal); Z3A.35 35 weeks gestation of pregnancy
CPT/HCPCS: 59025

== ENCOUNTER 2025-04-04 09:34 | Outpatient (CLI) | payer OTHER, SELFPAY ==
[2025-04-04 16:17] VITALS: BP 102/59; PULSE 74
[2025-04-04 16:24] VITALS: BP 132/87; PULSE 93; TEMP 36.8
[2025-04-04 17:15] LABS: HCT 29.8 % (36.0-46.0); HGB 9.7 g/dL (11.2-15.7)
--- NOTE | 2025-04-04 20:45 | W.OBNST ---
Date of service: 04/04/25 Time of Service: 20:45 NST Evaluation Reason for NST Reasons for Nonstress Test: INTRA-UTERINE GROWTH RES Gestational Age Gestational Age in Weeks and Days: 36 Weeks and 2Days Test and Monitor Explained Test/Monitor Explained: Test Explained, Monitor Explained and Patient Verbalized Understanding Vital Signs Blood Pressure: 132/87 Pulse: 93 Temperature: 98.2 F NST Information Date on Monitor: 04/04/25 Time on Monitor: 15:11 Date off Monitor: 04/04/25 Time off Monitor: 16:40 Total Time on Monitor: 89 NST Interventions: PO Hydration Contraction Frequency: rare NST Evaluation Patient States Movement: Present FHR Baseline: 135 Variability: Moderate 6-25 bpm Accelerations: 15x15 Decelerations: None NST Results: Reactive Note Ultrasound Done: N/A. NST Note Note: Hgb 9.7, pt not able to stay for iron infusion so will return tomorrow. Has appt Saturday 04/07 [place] [facility] [place]FW/CHAVO and UA dopplers NST Reviewed and Verified by: Darcie Tobin
[2025-04-04 20:46] VITALS: BP 132/87; PULSE 93; TEMP 36.8
== END 2025-04-04 17:20 ==
LOC: BCD 13:09 → OBS 16:10
PROVIDERS: Advanced Practice Midwife; PCP Nurse Practitioner Family; Visit Provider Advanced Practice Midwife
DX: Z3A.36 36 weeks gestation of pregnancy (principal); O36.5931 Maternal care for other known or suspected poor fetal growth, third trimester, fetus 1
CPT/HCPCS: 59025; 85014; 85018

== ENCOUNTER 2025-04-05 07:34 | Outpatient (CLI) | payer OTHER, SELFPAY ==
[2025-04-05 09:26] VITALS: BP 107/62; PULSE 81
[2025-04-05 09:40] VITALS: RESP 18; TEMP 37.7
--- NOTE | 2025-04-05 09:45 | NUR.NOTE ---
Nursing Note:Pt is here today for an Iron infusion. Pharmacy called to get med, they don't have it ready yet but will bring up when they do.
[2025-04-05] MEDS: IRON SUCROSE COMPLEX 200 MG in Normal Saline 100 ML 400 MG IVPB (10:09)
[2025-04-05] MEDS: Normal Saline Flush 10 ML SYR IVP (10:11)
--- NOTE | 2025-04-05 11:02 | W.OBNST ---
Date of service: 04/05/25 Time of Service: 11:00 NST Evaluation Reason for NST Reasons for Nonstress Test: OTHER, SEE COMMENT Reason for NST Other: Iron Infusion/ IUGR Gestational Age Gestational Age in Weeks and Days: 37 Weeks and 5Days Test and Monitor Explained Test/Monitor Explained: Test Explained NST Information Date on Monitor: 04/05/25 Time on Monitor: 09:24 Date off Monitor: 04/05/25 Time off Monitor: 10:03 Total Time on Monitor: 39 NST Interventions: None Contraction Frequency: occasional NST Evaluation Patient States Movement: Present FHR Baseline: 135 Variability: Moderate 6-25 bpm Accelerations: 15x15 Decelerations: None NST Results: Reactive Note Ultrasound Done: N/A. NST Note NST Reviewed and Verified by: Darcie Tobin
== END 2025-04-05 09:20 | disposition home or self-care (01) ==
LOC: BCD 07:34 → OBS 10:29 → BCD 04-07 10:21
PROVIDERS: PCP Nurse Practitioner Family; Visit Provider Advanced Practice Midwife
DX: O99.013 Anemia complicating pregnancy, third trimester (principal); Z3A.36 36 weeks gestation of pregnancy; O99.333 Smoking (tobacco) complicating pregnancy, third trimester; F17.290 Nicotine dependence, other tobacco product, uncomplicated; O99.843 Bariatric surgery status complicating pregnancy, third trimester; O36.5931 Maternal care for other known or suspected poor fetal growth, third trimester, fetus 1
CPT/HCPCS: 96365; 59025; J1756

== ENCOUNTER 2025-04-10 07:38 | Outpatient (CLI) | payer OTHER, SELFPAY ==
[2025-04-10 17:20] VITALS: BP 109/66; PULSE 75
[2025-04-10 17:22] VITALS: BP 109/66; PULSE 75; TEMP 36.7
--- NOTE | 2025-04-10 20:00 | W.OBNST ---
Date of service: 04/10/25 Time of Service: 20:00 NST Evaluation Reason for NST Reasons for Nonstress Test: INTRA-UTERINE GROWTH RES Gestational Age Gestational Age in Weeks and Days: 37 Weeks and 1Days Test and Monitor Explained Test/Monitor Explained: Test Explained and Monitor Explained Vital Signs Blood Pressure: 109/66 Pulse: 75 Temperature: 98.1 F Weight: 157 lb Urine Results Urine Protein: Negative Urine Ketones: Negative Urine Glucose: Negative Urine Blood: Negative NST Information Date on Monitor: 04/10/25 Time on Monitor: 17:20 Date off Monitor: 04/10/25 Time off Monitor: 17:49 Total Time on Monitor: 29 NST Interventions: PO Hydration NST Evaluation Patient States Movement: Present FHR Baseline: 135 Variability: Moderate 6-25 bpm Accelerations: 15x15 Decelerations: None NST Results: Reactive Note Ultrasound Done: N/A. NST Note Note: return Monday for NST NST Reviewed and Verified by: Darcie Tobin
[2025-04-10 20:01] VITALS: BP 109/66; PULSE 75; TEMP 36.7
[2025-04-11 14:51] VITALS: BP 109/66; PULSE 75; TEMP 36.7
--- NOTE | 2025-04-11 14:52 | W.OBNST ---
Date of service: 04/10/25 Time of Service: 18:30 NST Evaluation Reason for NST Reasons for Nonstress Test: INTRA-UTERINE GROWTH RES Gestational Age Gestational Age in Weeks and Days: 37 Weeks and 1Days Test and Monitor Explained Test/Monitor Explained: Test Explained and Monitor Explained Vital Signs Blood Pressure: 109/66 Pulse: 75 Temperature: 98.1 F Weight: 157 lb Urine Results Urine Protein: Negative Urine Ketones: Negative Urine Glucose: Negative Urine Blood: Negative NST Information Date on Monitor: 04/10/25 Time on Monitor: 17:20 Date off Monitor: 04/10/25 Time off Monitor: 17:49 Total Time on Monitor: 29 NST Interventions: PO Hydration NST Evaluation Patient States Movement: Present FHR Baseline: 135 Variability: Moderate 6-25 bpm Accelerations: 15x15 Decelerations: None NST Results: Reactive Note Ultrasound Done: N/A. NST Note NST Reviewed and Verified by: Darcie Tobin
[2025-04-11 14:53] VITALS: BP 109/66; PULSE 75; TEMP 36.7
== END 2025-04-10 17:55 ==
LOC: BCD 07:39 → OBS 17:15
PROVIDERS: PCP Nurse Practitioner Family; Visit Provider Advanced Practice Midwife
DX: Z3A.37 37 weeks gestation of pregnancy (principal); O36.5931 Maternal care for other known or suspected poor fetal growth, third trimester, fetus 1
CPT/HCPCS: 59025

== ENCOUNTER 2025-04-14 02:40 | Outpatient (CLI) | payer OTHER, SELFPAY ==
--- NOTE | 2025-04-14 07:15 | DI.US_ITS ---
Exam(s) US OB CHAVO UMBILICAL ARTERY EXAM: US OB CHAVO UMBILICAL ARTERY CLINICAL HISTORY: IUGR,CHAVO AND DOPPLER ONLY,o36.1935. TECHNIQUE: Transabdominal obstetrical ultrasound performed. COMPARISON: US US OB CHAVO UMBILICAL ARTERY from 03/25/2025 US US OB CHAVO WEIGHT from 04/01/2025 FINDINGS: Number of fetuses: 1 position: CEPHALIC Placental location: There is a grade 2 posterior placenta. No evidence of previa. BIOMETRIC DATA: Pulsatility index: The pulsatility index lies midway between the 5th and 50th percentile. Resistive index: The resistive index values lie just above the 5th percentile. The S/D ratio: These values lie close to the 50th percentile. Heart Rate: 122bpm Amniotic fluid index: 13.55cm. The largest pocket measures 5 cm. IMPRESSION: 1. Single live intrauterine gestation as above. 2. The umbilical artery Doppler measurements are all above the 5th percentile. DATA REPOSITORY:
== END 2025-04-14 03:00 ==
LOC: DI 02:40
PROVIDERS: PCP Nurse Practitioner Family; Visit Provider Advanced Practice Midwife
DX: O36.5931 Maternal care for other known or suspected poor fetal growth, third trimester, fetus 1 (principal); Z3A.32 32 weeks gestation of pregnancy
CPT/HCPCS: 76816; 76820

== ENCOUNTER 2025-04-14 07:16 | Outpatient (CLI) | payer OTHER, SELFPAY ==
[2025-04-14 14:34] VITALS: BP 105/63; PULSE 64; TEMP 36.6
[2025-04-14 14:59] LABS: HCT 30.2 % (36.0-46.0); HGB 9.8 g/dL (11.2-15.7); MCH 27.4 pg (27.0-33.0); MCHC 32.5 % (32.0-36.0); MCV 84 fL (80-95); MPV 8.6 fL (8.0-11.0); Platelet Count 256 10^3/uL (130-400); RBC 3.58 10^6/uL (3.93-5.22); RDW 15.6 % (11.7-14.6); RDW-SD 47.7 fL; WBC 9.25 10^3/uL (4.4-10.8)
--- NOTE | 2025-04-14 15:38 | W.OBNST ---
Date of service: 04/14/25 Time of Service: 15:39 NST Evaluation Reason for NST Reasons for Nonstress Test: INTRA-UTERINE GROWTH RES Gestational Age Gestational Age in Weeks and Days: 37 Weeks and 5Days Test and Monitor Explained Test/Monitor Explained: Test Explained, Monitor Explained and Patient Verbalized Understanding Vital Signs Blood Pressure: 105/63 Pulse: 64 Temperature: 97.9 F NST Information Date on Monitor: 04/14/25 Time on Monitor: 14:31 Date off Monitor: 04/14/25 Time off Monitor: 15:18 Total Time on Monitor: 47 NST Interventions: PO Hydration Contraction Frequency: 3-7 NST Evaluation Patient States Movement: Present FHR Baseline: 120 Variability: Moderate 6-25 bpm Accelerations: 15x15 Decelerations: None NST Results: Reactive Note Ultrasound Done: N/A. NST Note Note: Dylon had US with normal CHAVO and doppler studies today. Reactive NST. Hgb 9.8 and iron infusion given with venofer 200 mg IVPB. RTO in 3 days for IOL for IUGR. NST Reviewed and Verified by: Janna Fonseca
[2025-04-14 15:40] VITALS: BP 105/63; PULSE 64; TEMP 36.6
[2025-04-14] MEDS: IRON SUCROSE COMPLEX 200 MG in Normal Saline 100 ML 400 MG IVPB (15:42)
== END 2025-04-14 16:10 ==
LOC: BCD 07:24 → OBS 14:33
PROVIDERS: PCP Nurse Practitioner Family; Visit Provider Advanced Practice Midwife
DX: Z3A.37 37 weeks gestation of pregnancy (principal); O36.5931 Maternal care for other known or suspected poor fetal growth, third trimester, fetus 1
CPT/HCPCS: 85027; 59025; J1756

== ENCOUNTER 2025-04-17 08:24 | Inpatient (IN) | payer OTHER, SELFPAY ==
[2025-04-17] VITALS (34 sets, daily range): BP systolic 94–116; BP diastolic 52–69; PULSE 0–139; RESP 16–18; TEMP 36.5–37; O2SAT 96–100
--- NOTE | 2025-04-17 08:41 | HPE_ITS ---
Date of service: 04/17/25 Time of Service: 08:41 Assessment and Plan Assessment and plan (1) Anemia affecting first : Status: Acute Assessment and plan: Has received iron infusions weekly x3 Admission hgb 10.7 (2) IUGR (intrauterine growth restriction) affecting care of mother: Status: Acute Assessment and plan: 8th percentile at [facility] last week, likely physiologically small fetus, nml CHAVO, nml dopplers (3) Encounter for induction of labor: Status: Acute Assessment and plan: A: 24 yo G1 @ 38+1 wks, IOL for SGA fetus Hx notable for s/p Daniel-en-Y gastric bypass and significant weight loss Iron deficiency anemia treated with IV iron infusions Category 1 tracing, GBS neg, low risk for SD, increased risk PPH d/t IOL GBS neg, Rh+, Rubella and varicella non-immune P: Admit to L&D, CBC, T&S, will offer vaccines Collins score is 6, will being with misoprostel per guidelines Risks and benefits of IOL and miso reviewed with pt Dr. Montenegro consulting, anticipate OB-HPI Labor/Delivery History of Present Illness Reason for Visit: IOL at Term for SGA Chief Complaint: Scheduled Induction of Labor Indication for Induction: Intrauterine Growth Restriction/ Growth Restriction. KATIA Calculator Estimated Delivery Date Method Current WG Current Estimate 04/30/25 Ultrasound #1 38w 1d Other Estimates 03/30/25 LMP (Certain) 42w 4d History of Present Expected Delivery Route/Plan - CNM FOB/bianca Kevin (first child) BB will circ Rubella & Varicella Non-Immune - offered vaccinations IOL booked for 38 wks on 04/17/25 GBS taken 03/30=negative Specific Issues/Plan 1. Gastric bypass surgery 1 year prior to conception, lost 100 lbs 1a. Nutrition labs added to routine initial labs, [id number]=2.2. B12 elevated, will decrease from QD to QOD, Recheck B12 w/28 week labs 603/normal (taking B12 QOD) 1b. Vit D total is 75, no additional supplementation needed 1c. Glucose testing QID at 28 weeks: all nml levels 2. History elevated TSH: Rx'ed levothyroxine, stopped per PCP. TSH 1.47 2a. Check TSH at 30 wks 1.55 3. cfDNA screen low risk male, declines CF/SMA, AFP neg 4. Uses nicotine (zyn pouches), has cut down, encouraged to decrease further. Down to 2 pouches/day @ 32 weeks. Goal to stop prior to delivery. 5. At 20 wks placenta tip 1.7 cm from internal os, recheck @ 28 or 30 wks - 5a. At 28 wks EFW 8%ile. Normal doppler, CHAVO 10. Placenta remains low lying, repeat EFW/CHAVO 32 wks 5b. Placenta & EFW/CHAVO @ 33 wk, no previa but 3.4th% for growth, CHAVO 14, urgent referral to [facility] 5c. 34 wk MFM: EFW 7 %ile with normal dopplers. Recommended weekly dopplers, EFW in 3 wks, NST x2/wk, IOL after 38 wks unless earlier delivery is indicated or EFW <3rd percentile 5d. At 36 wks, EFW in 8th percentile, CHAVO=13.5, nml dopplers per [facility] 5e. CHAVO 13.6, doppler studies- WNL 6. Anemia Dx at 30 wks, Rx for FeS04 325 mg QOD. Didn't tolerate FeS04 (diarrhea & headaches), Changed to Ferrous Fumarate (not yet started at 32 weeks) 6a. Ferritin 7 @ 32 wks, hgb 10.2. Pt prefers IV iron infusions, start 9/10 weekly until hgb >11 Assessment: History Reviewed & Current Informed Consent Informed Consent: Induction of Labor and Risk,Benefits,Alternatives Discussed Review of Systems All systems reviewed & are unremarkable except as noted in HPI and below PFSH All Active Problems (Updated 04/17/25 @ 08:44 by Darcie Tobin) Encounter for induction of labor (Acute) Rubella non-immune status, antepartum (Acute) Maternal varicella, non-immune (Acute) IUGR (intrauterine growth restriction) affecting care of mother (Acute) Anemia affecting first (Acute) (Acute) Medical History (Updated 04/17/25 @ 08:44 by Darcie Tobin) Breast skin changes Dyspareunia seeing pelvic PT Abnormal uterine bleeding (AUB) Elevated TSH Obesity Pt has plans for bariatric weight loss surgery and has been advised to have regular BC for ~2yrs after the bariatric procedure. Surgical History (Updated 04/17/25 @ 08:47 by Darcie Tobin) History of Daniel-en-Y gastric bypass @ [facility] [place] H/O lymph node biopsy L anterior jugular, benign results Family History (Updated 09/12/24 @ 11:01 by Janna Fonseca CNM) Maternal Grandfather Diabetes Heart disease Paternal Aunt Thyroid cancer Mother Churg-Hali syndrome with lung involvement Social History Smoking/Tobacco Use Status: Current every day Tobacco Type: e-cigarettes Smoking risk assessment performed?: Yes Alcohol Intake: former Drug use: Never Substance use type: does not use Housing: house current occupation: student Sexually active: Yes What type of physical activity do you participate in: none Do you feel safe at home: Yes Do you feel safe in your relationship?: Yes Female Reproductive History Menstrual Duration of menses: other control method: none History History 1 Para 0 Hx # Term Pregnancies 0 Multiple births 0 Hx # Pregnancies 0 Ectopic pregnancies 0 AB induced 0 Hx Number of Living Children 0 AB spontaneous 0 Meds Allergies and Home Medications Allergies Allergy/AdvReac Type Severity Reaction Status Date / Time No Known Allergies Allergy Verified 03/20/25 09:30 Home Medications ?Medication ?Instructions ?Recorded ?Confirmed ?Type acetaminophen 325 mg tablet 325 - 650 mg PO PRN PRN 04/17/25 History (Tylenol) docosahexaenoic acid 200 mg mg PO 09/06/24 04/14/25 Hi story capsule ( DHA) mecobalamin (vitamin B12) 5,000 mcg PO 10/11/24 History mcg disintegrating tablet biotin 2,500 mcg capsule 2,500 mcg PO DAILY 12/09/24 04/17/25 History citracal 1,200 mg PO DAILY 12/09/24 1 History cetirizine 10 mg capsule (Zyrtec) 10 mg PO DAILY PRN 0 02/21/25 04/17/25 History Exam Physical Exam Vital Signs Reviewed: Yes Constitutional Constitutional: no acute distress, average body habitus and cooperative Detailed Labor and Delivery Exam Dilation: 3 Effacement (%): 60 station: -3 Cervix position: posterior Consistency: soft COLLINS Score(Cervical Ripeness Score): 6 Amniotic Membrane Status: Intact Contraction Frequency(min): rare Fetus A Heart Rate Baseline: 125 Monitor Accelerations: Present Monitor Decelerations: None Variability: Moderate (6-25 BPM) Categories: Category I Est. Weight: 5 lb 11.712 oz Est. Weight: 2600 gms HEENT Exam HEENT Exam: Normal Neck Exam Neck Exam: Normal Chest/Brest/Axilla Exam Chest Exam: Normal Breast Exam Breast Exam: Not Done Respiratory Exam Respiratory Exam: Normal Cardiovascular Exam Cardiovascular Exam: Normal Abdominal Exam Abdominal Exam: Normal (Gravid, soft) Rectal Exam Rectal Exam: Normal Exam Exam: Normal Extremities Exam Extremities Exam: Normal Back/Spine/Pelvis Exam Back Exam: Normal Pelvis Adequate: Yes Skin Exam Skin Exam: Normal Neurological Exam Neurological Exam: Normal Psychiatric Exam Psychiatric Exam: Normal Results Results Group Beta Strep: Negative Blood Type: B+ Rubella Status: Nonimmune Varicella Immunity: Nonimmune Risk Assessment Risk for Shoulder Dystocia Historical/Initial OB: NEGATIVE FOR: Pelvic Abnormality, Pre- BMI>30, Previous Shoulder Dystocia or Previous Macrosomia 36 Weeks: NEGATIVE FOR: Current Gestational DM, EFW>4500gms or Maternal Weight Gain>40lbs Increased Risk?: No Delivery Plan @ 36wks: IOL @ 38 wks, Risk for Pre-Eclampsia Date Initiated/Initials: not indicated. JK Yes, if one or more: NEGATIVE FOR: Hx Pre-E/Gest HTN, Chronic HTN, Multiple Gestation, Pre-gestational DM, Renal Disease, Systemic Lupus or APA Syndrome Yes, if 2 or more: POSITIVE FOR: Nulliparity; NEGATIVE FOR: Age>= 35 yrs, >10yr btwn pregnancies, BMI>30, ethinicty, Mother/Sister w/ Pre-E or Previous IUGR Risk for Post- Hemorrhage Initial: NEGATIVE FOR: Multiple Gestation, Previous PPH, Known Clotting Deficiency, Grand Multiparity or Anticoagulation 36 Weeks: POSITIVE FOR: Anemia, hgb<10; NEGATIVE FOR: Low platelets(thrombocytopenia), Gestational HTN or Pre-E, Polyhydraminios or EFW>4500gms At Risk?: Yes (d/t IOL and anemia) Counseled re: Active Management: Yes Risks Reviewed Risks Reviewed Upon Admission: Yes
[2025-04-17 09:28] LABS: Abs Immature Grans 0.09 10^3/uL (0.0-0.06); HCT 33.1 % (36.0-46.0); HGB 10.7 g/dL (11.2-15.7); Immature Grans % 1.0 %; MCH 27.4 pg (27.0-33.0); MCHC 32.3 % (32.0-36.0); MCV 85 fL (80-95); MPV 8.7 fL (8.0-11.0); Platelet Count 285 10^3/uL (130-400); RBC 3.90 10^6/uL (3.93-5.22); RDW 15.9 % (11.7-14.6); RDW-SD 48.5 fL; WBC 9.12 10^3/uL (4.4-10.8)
[2025-04-17] MEDS: miSOPROStol 50 MCG TAB PO (09:39)
--- NOTE | 2025-04-17 16:12 | PGE_ITS ---
Date of service: 04/17/25 Time of Service: 16:12 Informed Consent Informed Consent: Induction of Labor, Risk,Benefits,Alternatives Discussed and Other (AROM) Pelvic Exam Dilation: 4.5 Effacement (%): 90 station: -2 Cervix Position: posterior Consistency: soft Contractions Monitor Mode: External Contraction Frequency(min): q3-4 Intensity: Mild/Moderate Fetus A Monitor: External (US) Heart Rate Baseline: 130 Variability: Moderate (6-25 BPM) Categories: Category I Accelerations: Present Decelerations: None Amniotic Membrane Status: Ruptured Rupture Method: Artifical Amniotic Fluid: [place] Tinged Amount: moderate Date of Membrane Rupture: 04/17/25 Time of Membrane Rupture: 16:00 Assessment and Plan Assessment and plan (1) Encounter for induction of labor: Status: Acute Assessment and plan: A: Pt began having cervical change after 1 dose miso 50 mcg PO Now 4-5/90% posterior and soft, vtx -2 Pt consents for AROM, category 1 tracing P: Clear fluid with bloody vaginal mucous returned Anticipate active labor and Comfort measures as desired by pt Objective Abnormal lab results 04/17/25 Range/Units 09:10 RBC 3.90 L (3.93-5.22) 10^6/uL Hgb 10.7 L (11.2-15.7) g/dL Hct 33.1 L (36.0-46.0) % RDW 15.9 H (11.7-14.6) % Temp Pulse Resp BP Pulse Ox 98.2 F 69 16 108/69 100 04/17/25 14:02 04/17/25 14:02 04/17/25 14:02 04/17/25 14:02 04/17/25 14:02 Laboratory Results WBC 9.12 10^3/uL (4.4-10.8) 04/17/25 09:10 RBC 3.90 10^6/uL (3.93-5.22) L 04/17/25 09:10 Hgb 10.7 g/dL (11.2-15.7) L 04/17/25 09:10 Hct 33.1 % (36.0-46.0) L 04/17/25 09:10 MCV 85 fL (80-95) 04/17/25 09:10 MCH 27.4 pg (27.0-33.0) 04/17/25 09:10 MCHC 32.3 % (32.0-36.0) 04/17/25 09:10 RDW 15.9 % (11.7-14.6) H 04/17/25 09:10 Plt Count 285 10^3/uL (130-400) 04/17/25 09:10 MPV 8.7 fL (8.0-11.0) 04/17/25 09:10 Immature Gran % 1.0 % 04/17/25 09:10 Neutrophils % 73.0 % 04/17/25 09:10 Lymphocytes % 20.0 % 04/17/25 09:10 Monocytes % 5.2 % 04/17/25 09:10 Eosinophils % 0.4 % 04/17/25 09:10 Basophils % 0.4 % 04/17/25 09:10 Nucleated RBC % 0.0 % (0.0-0.3) 04/17/25 09:10 Absolute Neutrophils 6.66 10^3/uL (1.2-6.7) 04/17/25 09:10 Absolute Lymphocytes 1.82 10^3/uL (1.2-3.4) 04/17/25 09:10 Absolute Monocytes 0.47 10^3/uL (0.1-0.8) 04/17/25 09:10 Absolute Eosinophils 0.04 10^3/uL (0.0-0.7) 04/17/25 09:10 Absolute Basophils 0.04 10^3/uL (0.0-0.2) 04/17/25 09:10 ABO/Rh B Positive 04/17/25 09:10 Antibody Screen NEGATIVE 04/17/25 09:10 Vital Signs Reviewed: Yes Subjective Interval history since last seen: lower abd discomfort is increasing but pt is coping well. Tolerating PO intake without emesis, voiding qs, ambulating in room and around unit.
--- NOTE | 2025-04-17 19:52 | W.PM.OBNL1 ---
Date of service: 04/17/25 Time of Service: 19:53 Informed Consent Informed Consent: Induction of Labor, Risk,Benefits,Alternatives Discussed and Other (AROM) Pelvic Exam Dilation: 8.9 Effacement (%): 100 station: +1 Contractions Monitor Mode: External Contraction Frequency(min): q2-3 Intensity: Moderate/Strong Fetus A Monitor: External (US) Heart Rate Baseline: 125 Variability: Moderate (6-25 BPM) Categories: Category I Accelerations: Present Decelerations: None Amniotic Membrane Status: Ruptured Assessment and Plan Assessment and plan (1) Encounter for induction of labor: Status: Acute Assessment and plan: A: Progress to 8-9 cm and vtx +1, MALIKA since AROM @ 1600 category 1 tracing, [place] placed so pt could soak in wam tub but not working well will return to toco & u/s monitoring if adjustments not successful with [place] pt coping very well, requesting nitrous P: Anticipate , comfort measures as pt requests Subjective Interval history since last seen: Contractions are painful, tried the tub for 20 minutes but got cold, back to bed and SVE for 8-9 and vtx +1, requesting nitrous.
[2025-04-17] MEDS: Oxytocin 10 UNITS/ML VIAL IM (20:45)
[2025-04-17] MEDS: Dibucaine 1% 28 GM TUBE TP (21:18)
[2025-04-17] MEDS: Hamamelis Leaf/Glycerin 100 EACH BOX PR (21:19)
[2025-04-17] MEDS: Acetaminophen 325 MG TAB 650 MG PO (21:19)
--- NOTE | 2025-04-17 21:57 | OBVDS_ITS ---
Date of service: 04/17/25 Time of Service: 21:57 OB Labor/ Delivery Information Baby A Delivery Delivery Method: Spontaneaous Presentation: Cephalic Cephalic Position: Vertex Vertex Position: Left Occipital Anterior Cord Description-Baby A: 3 Vessels, Nuchal Cord, Reduced (overhead) and Other (left nuchal hand) Amniotic Fluid: Clear Estimated Blood Loss: 200 ml Delivery Outcome: Liveborn Transferred: Remains with Mother Note: Pt progressed spontaneously to full dilation, laboring in H&K on bed, EFM tracing category 1 overall reassuring with baseline at 115 and moderate variability, early decels noted. When pt began bearing down involuntarily, 2nd stage huddle was completed with risk of PPH prepared for, pt turned to semifowlers and accomplished over intact perineum, nuchal cord loose and reduced overhead, shoulders came with ease and left nuchal hand noted, vigorous male placed on mother's chest immediately. 10 units Pitocin given IM, cord clamped and cut by FOB at 5 minutes, cord blood collected, then Raphael placenta delivered intact with 3VC. Fundus firm below umbilicus, lochia was minimal, strong family bonding observed, apgars 9/9, weight 2710 gms. Providers Nurse Payroll Technician: Darcie Tobin Nurse: Orin Roberts Nurse: Joceline Muniz Labor/Delivery Information Number of Babies in Womb: 1 Steroids Given: None Reason Steroids Not Administered: N/A Group Beta Strep: Negative Antibiotics Administered: No Rubella Status: Nonimmune Blood Type: B+ Varicella Immunity: Nonimmune Medication in Delivery: pp pit Maternal Complications: None Stages of Labor Onset of Labor Date: 04/17/25 Complete Dilatation Date: 04/17/25 ROM Baby A: 04/17/25 ROM Baby A: 16:00 Delivery Date-Baby A: 04/17/25 Delivery Time-Baby A: 20:43 Placenta Delivery Date-Baby A: 04/17/25 Placenta Delivery Time-Baby A: 20:52 Labor-Stage 3 Duration: 9 minutes Placenta Cultured: No Placenta Status: Delivered Baby A Gender: Male Gestational Status: Early Term (37-38.6 wks) Gestational Age in Weeks/Days: 38 Weeks and 1 Days weight: 5 lb 15.592 oz Weight Comment: 2710 gms Score-1 Minute Interval(Baby A) Heart Rate-1 minute: 100 BPM or Greater Respiratory Effort- 1 minute: Spontaneous/Strong Cry Muscle Tone-1 minute: Active Movement Reflex Response-1 minute: Prompt Response Color-1 minute: Bluish Hands or Feet Total Score-1 minute: 9 Score-5 Minute Interval(Baby A) Heart Rate- 5 minute: 100 BPM or Greater Respiratory Effort-5 minute: Spontaneous/Strong Cry Muscle Tone-5 minute: Active Movement Reflex Response-5 minute: Prompt Response Color-5 minute: Bluish Hands or Feet Total Score- 5 minute: 9
[2025-04-18 00:08] VITALS: BP 104/59; PULSE 70
[2025-04-18 01:30] VITALS: BP 103/60; PULSE 70; RESP 16; O2SAT 97
[2025-04-18] MEDS: Acetaminophen 325 MG TAB 650 MG PO ×3 (05:02→20:19)
[2025-04-18 09:05] VITALS: BP 104/68; PULSE 68; RESP 16; TEMP 36.7; O2SAT 99
--- NOTE | 2025-04-18 09:51 | W.PM.OBPNV1 ---
Date of service: 04/18/25 Time of Service: 09:51 Assessment and Plan Assessment and plan (1) Term delivered: Status: Acute Assessment and plan: A: PPD#1, nml recovery, well Satisfied with experience P: Routine PP care, support Offer MMR and Varicella vaccines prior to discharge Plans to do fertility tracking for contraception Foster circumcision planned for today Expect discharge to home tomorrow. Exam Physical Exam Vital signs: Temp Pulse Resp BP Pulse Ox 98.6 F 70 16 103/60 97 04/17/25 21:55 04/18/25 01:30 04/18/25 01:30 04/18/25 01:30 04/18/25 01:30 Vital Signs Reviewed: Yes Constitutional Constitutional: no acute distress, average body habitus and cooperative HEENT Exam HEENT Exam: Normal Neck Exam Neck Exam: Normal Breast Exam Bilateral: Breast Exam: Normal and Soft Nipple Exam: Normal and Uninjured Respiratory Exam Respiratory Exam: Normal Cardiovascular Exam Cardiovascular Exam: Normal Abdominal Exam Abdomen: Other (soft, nontender) Fundal Exam Fundus: Below Umbilicus and Firm Rectal Exam Rectal Exam: Normal Exam Perineum: Intact and Normal Extremities Exam Extremity Exam: Normal, Full ROM and Warm to Touch Back/Spine/Pelvis Exam Back Exam: Normal Skin Exam Skin Exam: Normal Neurological Exam Neurological Exam: Normal Psychiatric Exam Psychiatric Exam: Normal
[2025-04-18 13:00] VITALS: BP 99/65; PULSE 67; RESP 16; TEMP 36.6
[2025-04-18 15:55] VITALS: BP 112/68; PULSE 66; RESP 16; TEMP 36.8; O2SAT 98
[2025-04-18 20:38] VITALS: BP 103/67; PULSE 64; RESP 16; TEMP 36.7; O2SAT 97
[2025-04-19] MEDS: Acetaminophen 325 MG TAB 650 MG PO ×2 (06:44→14:40)
[2025-04-19 08:10] VITALS: BP 100/63; PULSE 62; RESP 16; TEMP 36.8; O2SAT 98
[2025-04-19 14:10] VITALS: BP 108/70; PULSE 86; TEMP 36.7; O2SAT 98
--- NOTE | 2025-04-19 15:46 | DSE_ITS ---
Date of service: 04/19/25 Time of Service: 15:46 DS: Diagnosis Discharge Diagnosis (1) Term delivered: Status: Acute Asessment and Plan: Caring for baby independently. Pain is managed well with oral analgesics. delivery over intact perineum. Voiding without difficulty. was causing stress to [place] due to difficulty with latch and she chose to stop . A - stable mother and baby , Post day 2 P - Discharge to home. Routine post instructions. Follow up at [facility]. Discharge Plan Disposition Patient Disposition: Home Condition: Good Discharge Details Reason For Visit: IOL at Term for SGA Admit Date/Time: 04/17/25 08:24 Admit Provider: Darcie Tobin Attending Provider: Darcie Tobin Primary Care Provider: Kiki Nation Home Meds and New Rx's Prescriptions: No Action DHA 200 mg capsule PO mecobalamin (vitamin B12) 5,000 mcg tablet,disintegrating PO citracal 1,200 mg PO DAILY biotin 2,500 mcg capsule 2,500 mcg PO DAILY Zyrtec 10 mg capsule 10 mg PO DAILY PRN acetaminophen [Tylenol] 325 MG tablet 325 - 650 mg PO PRN PRN Discharge Instructions Stand Alone Forms: BC Instructions, BC Post Vaginal Deliver Activity:: Activity as Tolerated Equipment/Supplies:: No Equipment Needed Diet:: As Tolerated Discharge Orders Discharge Orders: Discharge Order (Routine); Ordered 04/19/25 Ordered By: Janna Fonseca OB:DS Summary Summary Vaginal Delivery Method: Spontaneaous Episiotomy Description: None Laceration Description: Periurethral Laceration Extension: N/A Contraception Discussed Contraception Discussed: Yes Contraceptive Plan: Undecided (considering paragard due to difficuly with hormonal effects of other contraception in the past), [place] Gender-Baby A: Male weight: 5 lb 15.592 oz Status at Discharge Functional status at discharge: independent ambulation Overall status at discharge: patient is back to baseline Mental Status: mental status grossly normal Speech and Movement: speech and movement normal Mood: congruent mood Affect: normal affect Exam Physical Exam Vital signs: Temp Pulse Resp BP Pulse Ox 98.1 F 86 16 108/70 98 04/19/25 14:10 04/19/25 14:10 04/19/25 08:10 04/19/25 14:10 04/19/25 14:10 Vital Signs Reviewed: Yes Constitutional Constitutional: mild distress (due to discomfort with pumping and decision to stop . ) HEENT Exam HEENT Exam: Normal Respiratory Exam Respiratory Exam: Normal Cardiovascular Exam Cardiovascular Exam: Normal Fundal Exam Fundus: Below Umbilicus and Firm Extremities Exam Extremity Exam: Normal Skin Exam Skin Exam: Normal Psychiatric Exam Psychiatric Exam: Normal PFSH All Active Problems (Updated 04/18/25 @ 09:53 by Darcie Tobin) Term delivered (Acute) Rubella non-immune status, antepartum (Acute) Maternal varicella, non-immune (Acute) Anemia affecting first (Acute) Medical History (Updated 04/18/25 @ 09:53 by Darcie Tobin) IUGR (intrauterine growth restriction) affecting care of mother Encounter for induction of labor Breast skin changes Dyspareunia seeing pelvic PT Abnormal uterine bleeding (AUB) Elevated TSH Obesity Pt has plans for bariatric weight loss surgery and has been advised to have regular BC for ~2yrs after the bariatric procedure. Surgical History (Updated 04/17/25 @ 08:47 by Darcie Tobin) History of Daniel-en-Y gastric bypass @ [facility] [place] H/O lymph node biopsy L anterior jugular, benign results Family History (Updated 09/12/24 @ 11:01 by Janna Fonseca CNM) Maternal Grandfather Diabetes Heart disease Paternal Aunt Thyroid cancer Mother Churg-Hali syndrome with lung involvement Social History Smoking/Tobacco Use Status: Current every day Tobacco Type: e-cigarettes Smoking risk assessment performed?: Yes Alcohol Intake: former Drug use: Never Substance use type: does not use Housing: house current occupation: student Sexually active: Yes What type of physical activity do you participate in: none Do you feel safe at home: Yes Do you feel safe in your relationship?: Yes Female Reproductive History Menstrual Duration of menses: other control method: none History History 1 Para 0 Hx # Term Pregnancies 0 Multiple births 0 Hx # Pregnancies 0 Ectopic pregnancies 0 AB induced 0 Hx Number of Living Children 0 AB spontaneous 0 DS: Data Vitals/I&O Vitals and I&O: Vital Signs Temperature 98.1 F 04/19/25 14:10 Temperature Source Oral 04/19/25 14:10 Pulse 86 04/19/25 14:10 Pulse Rhythm Regular 04/19/25 07:35 Respiratory Rate 16 04/19/25 08:10 Blood Pressure 108/70 04/19/25 14:10 Blood Pressure Mean 82 04/19/25 14:10 Pulse Oximetry 98 04/19/25 14:10 Oxygen Delivery Method Room Air 04/17/25 08:26 Oxygen Flow Rate 0 04/17/25 08:26 Pain Level 0 04/19/25 08:10 Intake & Output 04/18/25 04/19/25 04/19/25 23:59 11:59 23:59 Other: Comment pt voiding independently without difficulty. voiding independently
== END 2025-04-19 16:00 | disposition home or self-care (01) | DRG 807 ==
PROVIDERS: Admitting Provider Advanced Practice Midwife; PCP Nurse Practitioner Family; Visit Provider Advanced Practice Midwife
DX: O99.02 Anemia complicating childbirth (principal); Z37.0 Single live birth; O36.5930 Maternal care for other known or suspected poor fetal growth, third trimester, not applicable or unspecified; Z3A.38 38 weeks gestation of pregnancy; D50.9 Iron deficiency anemia, unspecified; O99.844 Bariatric surgery status complicating childbirth; O99.334 Smoking (tobacco) complicating childbirth; F17.290 Nicotine dependence, other tobacco product, uncomplicated; O69.81X0 Labor and delivery complicated by cord around neck, without compression, not applicable or unspecified
CPT/HCPCS: 36415; 86850; 86900; 86901; 59200; 85025; J2590